=== PATIENT | female | born 1950 | race Caucasian/White ===

== ENCOUNTER 2020-02-23 10:00 | Emergency (ER) | payer MEDICARE, OTHER, SELFPAY ==
[2020-02-23 10:01] VITALS: BP 139/74; PULSE 80; RESP 16; TEMP 36.3; O2SAT 99; BMI 24.4
--- NOTE | 2020-02-23 10:13 | CT_ITS ---
STUDY: CT BRAIN WITHOUT CONTRAST REASON FOR EXAM: Female, 69 years old. WOKE UP WITH LEFT SIDED HEADACHE AND NECK ACHE RADIATION DOSAGE (If Supplied By Facility): CTDIvol = ( 44.99 ) mGy, DLP = ( 711.75 ) mGycm TECHNIQUE: Transaxial CT imaging of the brain was performed without administration of intravenous contrast material. Individualized dose optimization techniques were used for this CT. COMPARISON: No relevant priors. FINDINGS: Normal soft tissue structures. Normal calvarium. There is mild cerebral atrophy with widening of the extra-axial spaces and ventricular dilatation. Normal white matter tracts of the cerebral hemispheres. Normal basal ganglia and thalami. Normal brainstem. Normal cerebellum. There is no intracranial hemorrhage. There are no findings of an acute ischemic infarction. Mucosal thickening of the ethmoid sinuses. CT/Brain/Head without Contrast IMPRESSION: Chronic involutional changes of the brain. Electronically Signed: Fredi Zavala, at 11:09 EDT , Service support ,
--- NOTE | 2020-02-23 10:15 | CT_ITS ---
STUDY: CT CERVICAL SPINE WITHOUT CONTRAST REASON FOR EXAM: Female, 69 years old. WOKE UP WITH LEFT SIDED HEADACHE AND NECK ACHE RADIATION DOSAGE (If Supplied By Facility): CTDIvol = ( 15.31 ) mGy, DLP = ( 278.18 ) mGycm TECHNIQUE: High resolution transaxial imaging was performed without contrast material. Sagittal and coronal images were reconstructed. Individualized dose optimization techniques were used for this CT. COMPARISON: None FINDINGS: Normal craniovertebral junction. There are degenerative changes of the anterior atlantoaxial articulation. Normal odontoid process. There is straightening of the normal cervical lordosis. Normal vertebral bodies and posterior osseous elements. C2-3: Facet joint osteoarthritis and hypertrophy more prominent on the left side. C3-4: There is a moderate degree of disc space narrowing with spondylosis. Uncovertebral arthrosis. Hypertrophy of the facet joints worse on the left side with mild left neural foraminal stenosis. C4-5: Facet joint osteoarthritis and hypertrophy more prominent on the right side. Spondylosis and uncovertebral arthrosis. No significant stenosis seen. C5-6: Marked degree of the disc space narrowing with subchondral sclerosis and spondylosis. No significant neural foraminal stenosis is seen. C6-7: Moderate degree of disc space narrowing. Uncovertebral arthrosis. Facet joint osteoarthritis. C7-T1: Normal endplates. Normal disc height and morphology. Normal central canal and intervertebral neuroforamina. Normal visualized soft tissue structures. CT/Spine Cervical without Contras IMPRESSION: Multilevel degenerative changes, as described above. Electronically Signed: Fredi Zavala, at 11:16 EDT , Service support ,
--- NOTE | 2020-02-23 10:18 | ED.DCSUM_ITS ---
- ER Visit Summary Date of Service: 02/23/20 Chief Complaint: Headache History of Present Illness: The patient is a 69 F who presents with a headache that began earlier this morning. Patient states she woke up early this morning and had pain on the left side of her head. Patient states the pain radiates i nto her neck. Patient states her pain is worse with movement. Patient states she did take some Tylenol this morning with minimal relief. Patient describes her pain as stabbing. Patient denies any visual changes. Patient denies any nausea or vomiting. Patient denies any paresthesias or weakness. Patient denies any photophobia. Patient denies any fevers or chills. Physical Examination: Vital signs are stable. Patient is afebrile. Patient is in no acute distress. Pupils are equal, round, and reactive to light bilaterally. Extraocular muscles are intact. Tympanic membranes are clear bilaterally. Oral mucosa is pink and moist. Neck is supple. Trachea is midline. There is no JVD noted. Heart was regular rate and rhythm. Lungs are clear and equal bilaterally. Abdomen is soft. Bowel sounds are normal. There is no tenderness. There is no rebound or guarding noted. Skin is warm dry. Cranial nerves II through XII are intact. There are no focal motor or sensory deficits noted. Extremities are intact. There is no calf tenderness or edema. Test Results: CT scan of the brain was obtained. There is no acute intracranial abnormality. CT scan of the cervical spine was obtained. There are degenerative changes but no acute process. These were interpreted by the radiologist and reviewed by myself. Emergency Department Course and Treatment: Patient was given IV fluids, Reglan, and Benadryl. Patient was feeling better on reevaluation. Patient states her headache is resolved. Patient was instructed to rest in a dark quiet room. Patient was instructed to follow-up with her primary care physician in 5 to 7 days for further evaluation of her headache. Patient understood and was agreeable with the plan. All questions were answered. Disposition: Discharge home Impression: Headache This note was generated with [employer] software. It may contain incorrect words, spelling, and punctuation that were not noted in review of the chart prior to signing ED Disposition - Plan for ED Patient: Disposition: Home or Assisted Living Diagnosis: Headache Instructions: ED Headache Unspecified Referrals: Dmitry Burciaga MD [Primary Care Provider] - 5-7 Days
[2020-02-23] MEDS: 0.9% Normal Saline 1,000 ML 999 ML IV (10:37)
[2020-02-23] MEDS: DiphenhydrAMINE 50 MG/ML Syringe 25 MG IV (10:37)
[2020-02-23] MEDS: Metoclopramide 10 MG/2 ML Vial IV (10:38)
[2020-02-23 12:07] VITALS: BP 119/53; O2SAT 97
== END 2020-02-23 12:13 | disposition home or self-care (01) ==
PROVIDERS: Emergency Provider Emergency Medicine; PCP Family Medicine
DX: R51 Headache (principal); M54.2 Cervicalgia; M54.9 Dorsalgia, unspecified; E11.9 Type 2 diabetes mellitus without complications
CPT/HCPCS: 70450; 72125; 96361; 96374; 96375; 99283; J7030

== ENCOUNTER → 2020-04-04 09:10 | Outpatient (CLI) | payer MEDICARE, OTHER, SELFPAY | PROVIDERS: PCP Family Medicine; Referring Provider Physician Assistant; Visit Provider Physician Assistant | DX: Z20.828 Contact with and (suspected) exposure to other viral communicable diseases (principal); R68.89 Other general symptoms and signs | CPT/HCPCS: 87635; C9803; U0003 ==